=== PATIENT | male | born 1970 | race Caucasian/White ===

== ENCOUNTER 2017-10-20 10:19 | Emergency (ER) | payer BC ==
[2017-10-20] MEDS ORDERED: Sodium Chloride 0.9% 5 ML Syringe FLUSH PRN (10:30)
[2017-10-20] MEDS: Ketorolac 30 MG/ML SDV IVPUSH ONE (10:44)
[2017-10-20] MEDS: Sodium Chloride 0.9% 1,000 ML IV ONE (11:00)
[2017-10-20 11:17] LABS: ANION GAP 17.4 mmol/L (5-15); CHLORIDE,CL 105 mmol/L (98-115); SODIUM,NA 142 mmol/L (136-145)
[2017-10-20] MEDS: Ketorolac 10 MG Tab PO ONE (13:29)
[2017-10-20] MEDS: Tamsulosin 0.4 MG Cap.ER PO ONE (13:29)
== END 2017-10-20 12:30 | disposition home or self-care (01) ==
LOC: MERGE 10:19 → KA.ED 10:19
DX: N13.2 Hydronephrosis with renal and ureteral calculous obstruction (principal); K44.9 Diaphragmatic hernia without obstruction or gangrene
CPT/HCPCS: 74176; 80053; 81001; 85025; 96361; 96374; 99284; A9270-GY; J1885; J7030

== ENCOUNTER 2024-08-25 09:17 | Day surgery (SDC) | payer BC ==
[2024-08-25] MEDS ORDERED: Sodium Chloride 0.9% 10 ML Syringe FLUSH PRN (09:45)
[2024-08-25] MEDS: Lactated Ringers 1,000 ML IV SCH (09:46)
[2024-08-25] MEDS ORDERED: Midazolam 1 MG/ML 2 ML SDV ONE (10:11)
[2024-08-25] MEDS ORDERED: Propofol 200 MG/20 ML SDV ONE (10:11)
== END 2024-08-25 12:28 | disposition home or self-care (01) ==
LOC: KA.SDS 09:17
PROVIDERS: ATTEND Family Medicine
DX: Z12.11 Encounter for screening for malignant neoplasm of colon (principal); K62.1 Rectal polyp; K63.5 Polyp of colon; E66.3 Overweight; Z68.29 Body mass index [BMI] 29.0-29.9, adult
CPT/HCPCS: 00811; J2250; J2704; J7120